=== PATIENT | female | born 1980 | race African-American/Black ===

== ENCOUNTER 2016-10-22 02:41 | Emergency (ER) | payer OTHER ==
[~2016-10-22] VITALS: Ht 162.6 cm; Wt 86.4 kg
[2016-10-22 02:52] VITALS: BP 117/75
== END 2016-10-22 03:23 | disposition left against medical advice (07) ==
LOC: EMS 02:42
DX: M62.830 Muscle spasm of back (principal); Z53.21 Procedure and treatment not carried out due to patient leaving prior to being seen by health care provider

== ENCOUNTER 2016-11-02 15:24 | Emergency (ER) | payer MEDICAID, OTHER ==
[~2016-11-02] VITALS: Ht 162.6 cm; Wt 86.0 kg
[2016-11-02] MEDS ORDERED: ARIP10TA14 PO (15:39)
[2016-11-02] MEDS ORDERED: KETOROLAC TROMETHAMINE 60 MG/2 ML VIAL IM ONE (21:45)
[2016-11-02] MEDS ORDERED: SULFAMETHOX/TRIMETH DS 800-160 MG/TABLET PO ONE (21:45)
[2016-11-02] MEDS ORDERED: CEPHALEXIN MONOHYDRATE 500 MG CAPSULE PO ONE (21:45)
[2016-11-02 22:40] VITALS: BP 138/78
== END 2016-11-02 22:53 | disposition home or self-care (01) ==
LOC: EMS 15:29
DX: L02.413 Cutaneous abscess of right upper limb (principal); F15.90 Other stimulant use, unspecified, uncomplicated; F19.90 Other psychoactive substance use, unspecified, uncomplicated; F17.210 Nicotine dependence, cigarettes, uncomplicated
CPT/HCPCS: 96372; 99283; J1885